=== PATIENT | female | born 1940 | race Two or more races ===

== ENCOUNTER 2023-05-03 12:51 | Emergency (ER) | payer OTHER ==
[~2023-05-03] VITALS: Ht 162.6 cm; Wt 72.6 kg
== END 2023-05-03 15:44 | disposition home or self-care (01) ==
LOC: EDBD 12:52 → ER 12:52
DX: S00.93XA Contusion of unspecified part of head, initial encounter (principal); S30.0XXA Contusion of lower back and pelvis, initial encounter; W18.39XA Other fall on same level, initial encounter; Y93.9 Activity, unspecified; Y92.018 Other place in single-family (private) house as the place of occurrence of the external cause; Y99.9 Unspecified external cause status; R07.81 Pleurodynia
CPT/HCPCS: 70450; 71110; 72100; 72125; 96372; 99284; J1885

== ENCOUNTER 2024-06-18 15:30 | Emergency (ER) | payer OTHER ==
[~2024-06-18] VITALS: Ht 152.4 cm; Wt 59.0 kg
[2024-06-18] MEDS ORDERED: ARICEPT5 MG PO (16:12)
[2024-06-18] MEDS ORDERED: CHILDREN'S ASPI81 MG PO (16:12)
[2024-06-18] MEDS ORDERED: CRESTOR40 MG PO (16:12)
[2024-06-18] MEDS ORDERED: GLIPIZIDE XL2.5 MG (16:13)
[2024-06-18] MEDS ORDERED: HYDROCHLOROTHIA25 MG PO (16:13)
[2024-06-18] MEDS ORDERED: TRICOR48 MG PO (16:13)
== END 2024-06-18 21:59 | disposition home or self-care (01) ==
LOC: ER 15:31
DX: S09.8XXA Other specified injuries of head, initial encounter (principal); W19.XXXA Unspecified fall, initial encounter; Y93.89 Activity, other specified; Y92.098 Other place in other non-institutional residence as the place of occurrence of the external cause; Y99.8 Other external cause status; E11.9 Type 2 diabetes mellitus without complications